=== PATIENT | female | born 1950 | race Caucasian/White ===

== ENCOUNTER 2016-02-27 10:12 | Day surgery (SDC) | payer MEDICARE, BC ==
[2016-02-22 15:46] VITALS: BMI 27.2
[~2016-02-27 10:12] MED LIST: LACTATED RINGERS 1,000 ML IV SCH; LIDOCAINE 1% 20 ML VIAL (10MG/ML) FOR IV START INTRADERMA PRN
[2016-02-27 10:36] VITALS: TEMP 98.8
[2016-02-27] MEDS ORDERED: ONDANSETRON 4 MG/2 ML VIAL IVP PRN (10:38)
[2016-02-27] MEDS ORDERED: LIDOCAINE 1% INJ 10MG/ML (20 ML MDV) ONE (10:51)
[2016-02-27] MEDS ORDERED: PROPOFOL 10 MG/ML 20 ML VIAL IV ONE (10:51)
--- NOTE | 2016-02-27 11:00 | P.PCN ---
Date of Procedure: 02/27/16 Procedure(s) Performed: BRIEF HISTORY: Patient is a 65-year-old, pleasant, white female, scheduled for an upper endoscopy as a part of evaluation of long-standing symptoms of gastroesophageal reflux disease. Lately she has intermittent chest pain, excessive belching and severe heartburn and has been on Nexium 20 mg twice daily despite which remains symptomatic area she is hence scheduled for an upper endoscopy to rule out complicated reflux. PROCEDURE PERFORMED: Esophagogastroduodenoscopy with biopsy. PREOPERATIVE DIAGNOSIS: Long-standing history of GERD with refractory symptoms. IV sedation per anesthesia. PROCEDURE: After informed consent was obtained, the patient was brought into the endoscopy unit. IV conscious sedation was administered by Anesthesia under continuous monitoring. Initially the Olympus GIF-140 video endoscope was inserted into the mouth. Esophagus intubated without any difficulty. It was gradually advanced into the stomach and duodenum and carefully examined. The bulb and the second part of the duodenum appeared normal. The scope at this time was withdrawn to the stomach, adequately insufflated with air, and upon careful examination, mucosa of the antrum, had mild gastritis and biopsies were done from this area. The body, cardia and the fundus appeared normal. The scope was then withdrawn into the esophagus. The GE junction was located at 39 cm from the incisors. The esophagus appeared normal. There were no erosions or ulcerations seen and the patient tolerated the procedure well. IMPRESSION: 1. Mild antral gastritis. 2. No evidence of esophagitis or Ruelas's esophagus. RECOMMENDATIONS: The findings of this examination were discussed with the patient as well as her family. She was advised to follow with the biopsy results. She was advised to continue with Nexium 20 mg twice daily and follow antireflux measures.
[2016-02-27 11:25] VITALS: BP 108/47; PULSE 63; RESP 18
== END 2016-02-27 11:45 | disposition home or self-care (01) ==
LOC: ORWHC2ENDO 10:12
PROVIDERS: ATTEND Internal Medicine Gastroenterology
DX: K21.9 Gastro-esophageal reflux disease without esophagitis (principal); K29.50 Unspecified chronic gastritis without bleeding; I10 Essential (primary) hypertension; E78.5 Hyperlipidemia, unspecified; L71.9 Rosacea, unspecified; Z79.899 Other long term (current) drug therapy; Z88.1 Allergy status to other antibiotic agents; Z88.0 Allergy status to penicillin
CPT/HCPCS: 88305; 88342; 43239; J2405; J2001; J2704

== ENCOUNTER → 2016-06-09 | Outpatient (CLI) | payer MEDICARE, BC ==
--- NOTE | 2016-06-11 07:53 | MM ---
Reason for exam: screening (asymptomatic). Last mammogram was performed 1 year ago. History: Patient is postmenopausal. Family history of breast cancer in maternal grandmother at age 56, breast cancer in mother at age 50, and breast cancer in maternal aunt at age 72. Benign excisional biopsy of the left breast, 1995. Took progesterone for 2 years beginning at age 53. Physical Findings: A clinical breast exam by your physician is recommended on an annual basis and results should be correlated with mammographic findings. MG 3D Screening Mammo W/Cad Bilateral CC and MLO view(s) were taken. Prior study comparison: June 08, 2015, bilateral MG 3d screening mammo w/cad. May 31, 2014, bilateral MG screening mammo w CAD. May 16, 2013, bilateral digital screening mammo w/CAD. There are scattered fibroglandular densities. No significant changes when compared with prior studies. ASSESSMENT: Negative, BI-RAD 1 RECOMMENDATION: Routine screening mammogram of both breasts in 1 year.
== END | disposition home or self-care (01) ==
LOC: RADMAMWWP 08:46
PROVIDERS: ATTEND Obstetrics & Gynecology
DX: Z12.31 Encounter for screening mammogram for malignant neoplasm of breast (principal); Z80.3 Family history of malignant neoplasm of breast
CPT/HCPCS: 77063; G0202

== ENCOUNTER → 2017-06-22 | Outpatient (CLI) | payer MEDICARE, BC ==
--- NOTE | 2017-06-23 11:39 | MM ---
Reason for exam: screening (asymptomatic). Last mammogram was performed 1 year ago. History: Patient is postmenopausal. Family history of breast cancer in maternal grandmother at age 56, breast cancer in mother at age 50, and breast cancer in maternal aunt at age 72. Benign excisional biopsy of the left breast, 1995. Took progesterone for 2 years beginning at age 53. Physical Findings: A clinical breast exam by your physician is recommended on an annual basis and results should be correlated with mammographic findings. MG 3D Screening Mammo W/Cad Bilateral CC and MLO view(s) were taken. Prior study comparison: June 09, 2016, bilateral MG 3d screening mammo w/cad. June 08, 2015, bilateral MG 3d screening mammo w/cad. There are scattered fibroglandular densities. No significant changes when compared with prior studies. ASSESSMENT: Negative, BI-RAD 1 RECOMMENDATION: Routine screening mammogram of both breasts in 1 year.
== END | disposition home or self-care (01) ==
LOC: RADMAMWWP 08:49
PROVIDERS: ATTEND Obstetrics & Gynecology
DX: Z12.31 Encounter for screening mammogram for malignant neoplasm of breast (principal)
CPT/HCPCS: 77063; 77067

== ENCOUNTER → 2018-06-25 | Outpatient (CLI) | payer MEDICARE ==
--- NOTE | 2018-06-29 13:42 | MM ---
Reason for exam: screening (asymptomatic). Last mammogram was performed 1 year ago. History: Patient is postmenopausal. Family history of breast cancer in maternal grandmother at age 56, breast cancer in mother at age 50, and breast cancer in maternal aunt at age 72. Benign excisional biopsy of the left breast, 1995. Took progesterone for 2 years beginning at age 53. Physical Findings: A clinical breast exam by your physician is recommended on an annual basis and results should be correlated with mammographic findings. MG 3D Screening Mammo W/Cad Bilateral CC and MLO view(s) were taken. Prior study comparison: June 22, 2017, bilateral MG 3d screening mammo w/cad. June 09, 2016, bilateral MG 3d screening mammo w/cad. The breast tissue is heterogeneously dense. This may lower the sensitivity of mammography. No significant changes when compared with prior studies. ASSESSMENT: Benign, BI-RAD 2 RECOMMENDATION: Routine screening mammogram of both breasts in 1 year.
== END | disposition home or self-care (01) ==
LOC: RADMAMWWP 09:00
PROVIDERS: ATTEND Obstetrics & Gynecology
DX: Z12.31 Encounter for screening mammogram for malignant neoplasm of breast (principal); Z80.3 Family history of malignant neoplasm of breast
CPT/HCPCS: 77063; 77067

== ENCOUNTER 2018-11-29 06:47 | Day surgery (SDC) | payer MEDICARE ==
[2018-11-24 15:49] VITALS: BMI 24.2
[~2018-11-29 06:47] MED LIST changes: +HYDROmorphone 0.5 MG/0.5 ML SYRINGE IVP PRN; +ONDANSETRON 4 MG/2 ML VIAL IVP ONE; +Pre Op ABX Message 1 EACH MISC MISCELLANE ONE
[2018-11-29 07:11] VITALS: RESP 16; TEMP 97.7
[2018-11-29] MEDS ORDERED: MIDAZOLAM 2 MG/2 ML VIAL IVP ONE (07:26)
[2018-11-29] MEDS ORDERED: fentaNYL (PF) 50 MCG/ML 2 ML AMP IVP ONE (07:26)
[2018-11-29] MEDS ORDERED: fentaNYL (PF) 50 MCG/ML 2 ML AMP ONE (09:05)
[2018-11-29] MEDS ORDERED: MIDAZOLAM 2 MG/2 ML VIAL ONE (09:05)
[2018-11-29] MEDS ORDERED: ROPIVACAINE 5 MG/ML 30 ML VIAL ONE (09:05)
[2018-11-29] MEDS ORDERED: PROPOFOL 10 MG/ML 20 ML VIAL IV ONE (09:05)
[2018-11-29] MEDS ORDERED: BUPIVACAINE (PF) 0.5% 30 ML VIAL SQ ONE (09:14)
[2018-11-29] MEDS ORDERED: LIDOCAINE 2% INJ 20 MG/ML SQ ONE (09:14)
[2018-11-29] MEDS ORDERED: SODIUM CHLORIDE 0.9% 50 ML with ceFAZolin 1,000 MG IV ONE ×2 (09:24)
[2018-11-29 10:35] VITALS: PULSE 67
[2018-11-29 10:38] VITALS: BP 115/66
--- NOTE | 2018-11-29 10:59 | P.ANPRN ---
Procedure Note - Anesthesia - Nerve Block Performed Left Axillary Single Date of Procedure: 11/29/18 Procedure Start Time: 07:24 Procedure Stop Time: 07:35 Location of Patient Procedure: PreOp Indication: Acute Post-Operative Pain, Requested by Surgeon Specifically requested for management of pain by DrKel: John Pruitt Sedation Type: Sedate with meaningful contact maintained Preparation: Sterile Prep Position: Supine Catheter: None Needle Types: Pajunk Needle Gauge: 21 Ultrasound used to visualize needle placement: Yes Ultrasound used to observe medication spread: Yes Injectate: 0.5% Ropivacaine (see comment for volume) (20 cc) Blood Aspirated: No Pain Paresthesia on Injection Noted: No Resistance on Injection: Normal Image Stored and Saved: Yes Events: Uneventful and Well Tolerated
--- NOTE | 2018-11-30 08:36 | OP ---
OPERATIVE REPORT PROCEDURE: SURGERY DATE 11/29/2018 PREOPERATIVE DIAGNOSIS: 1. Basilar joint arthritis, left thumb. 2. Left carpal tunnel syndrome. FINAL DIAGNOSES: 1. Basilar joint arthritis, left thumb. 2. Left carpal tunnel syndrome. PROCEDURES: 1. Excision of trapezium with ligament reconstruction, tendon interposition arthroplasty using the flexor carpi radialis tendon. 2. Left carpal tunnel release. SILK WEAVER: Helen Muller NP PROCEDURE: The patient was taken to the Operative Suite after an axillary block was performed by the Department of Anesthesia in the holding area with good results. The involved arm was prepped and draped in the usual manner, elevated, exsanguinated and blood pressure tourniquet inflated to 250 mm of mercury. A volar incision was made over the palm of the hand using a Dawson approach. The dissection was taken through the subcutaneous tissue bluntly to identify and to preserve sensory branches. The flexor carpi radialis tendon was initially identified and kept in view throughout the remainder of the procedure. The thenar muscles were then gently dissected off of the volar capsule and reflected ulnarly and distally. Longitudinal arthrotomy was then made into the trapezial metacarpal and scaphotrapezial joints. The trapezium was dissected sharply with a little traction on the thumb and care again, given to monitoring the position of the flexor carpi radialis. The trapezium was osteotomized and removed in piecemeal fashion using rongeur. Again, the flexor carpi radialis tendon was kept intact so as not to be harmed during this portion of the procedure. A drill hole was then made into the base of the first metacarpal, beginning with an awl and enlarged using drill bits and a large curette. A similar hole was drilled on the dorsal aspect of the base of the first metacarpal perpendicular to the plane of the nail bed. Attention was then turned to harvesting the flexor carpi radialis. Approximately 8 to 10 cm proximal to the wrist, small transverse incision was made and blunt dissection was taken through the subcutaneous tissue. The flexor carpi radialis tendon was identified and released to this level. It was retracted into the wrist wound with a gentle tug. A suspension sling arthroplasty was then performed along with ligament reconstruction of the deep volar ligament using the flexor carpi radialis tendon. The edge of the tendon was secured with suture. The suture was then passed into the base of the first metacarpal and brought out through the dorsal drill hole and brought back down upon itself and abductor pollicis longus tendons. It was secured in place with 3-0 PDS suture. It was then brought back around itself, back through the abductor pollicis longus tendons, and back down upon itself again and further secured with 3-0 PDS suture. Again, in this manner reconstruction of the deep volar ligament was accomplished as well as a suspension sling arthroplasty and natural tendon spacer for the joint. Next, a longitudinal incision was made along the ring finger ray distal to the wrist crease. Dissection was taken through the skin and subcutaneous tissue, initially sharp through the skin and then blunt through the subcutaneous tissue to ensure protection of any potential terminal transverse branches of the palmar cutaneous nerve. The palmar fascia was then incised under direct vision longitudinally exposing the transverse carpal ligament. The transverse carpal ligament also was incised under direct visualization. The median nerve was then reflected free of tenosynovium to ensure no adhesions. At this point, a slight hour glass constriction was noted of the median nerve beneath the transverse carpal ligament. Both wounds were again irrigated and were closed with running and interrupted 5- 0 nylon suture. A soft bulky dressing was then applied including the volar plaster splint, immobilizing the wrist in neutral position and a thumb spica splint to the IP joint, immobilizing the thumb. The patient was then taken to the Recovery Room in satisfactory condition. MIGUEL ÁNGEL / MARILYN: [id number] / [email or web address]
== END 2018-11-29 11:15 | disposition home or self-care (01) ==
LOC: OR 06:47
PROVIDERS: ATTEND Orthopaedic Surgery Hand Surgery
DX: M18.12 Unilateral primary osteoarthritis of first carpometacarpal joint, left hand (principal); G56.02 Carpal tunnel syndrome, left upper limb; I10 Essential (primary) hypertension; E78.5 Hyperlipidemia, unspecified; L71.9 Rosacea, unspecified; E03.9 Hypothyroidism, unspecified; E05.00 Thyrotoxicosis with diffuse goiter without thyrotoxic crisis or storm; K21.9 Gastro-esophageal reflux disease without esophagitis; I73.00 Raynaud's syndrome without gangrene; Z79.1 Long term (current) use of non-steroidal anti-inflammatories (NSAID); Z79.899 Other long term (current) drug therapy; Z88.1 Allergy status to other antibiotic agents; Z88.0 Allergy status to penicillin; Z98.890 Other specified postprocedural states; Z86.79 Personal history of other diseases of the circulatory system; Z83.3 Family history of diabetes mellitus; Z82.49 Family history of ischemic heart disease and other diseases of the circulatory system
CPT/HCPCS: 64721; 25447; 25310; 64415; J2250; J2405; J0690; J3010; J2795; J2704; 64445; 76942

== ENCOUNTER → 2019-09-16 | Outpatient (CLI) | payer MEDICARE ==
--- NOTE | 2019-09-19 14:14 | MM ---
Reason for exam: screening (asymptomatic). Last mammogram was performed 1 year and 3 months ago. History: Patient is postmenopausal. Family history of breast cancer in maternal grandmother at age 56, breast cancer in mother at age 50, and breast cancer in maternal aunt at age 72. Benign excisional biopsy of the left breast, 1995. Took progesterone for 2 years beginning at age 53. Physical Findings: A clinical breast exam by your physician is recommended on an annual basis and results should be correlated with mammographic findings. MG 3D Screening Mammo W/Cad Bilateral CC and MLO view(s) were taken. Prior study comparison: June 25, 2018, bilateral MG 3d screening mammo w/cad. June 22, 2017, bilateral MG 3d screening mammo w/cad. The breast tissue is heterogeneously dense. This may lower the sensitivity of mammography. There is no discrete abnormality. ASSESSMENT: Benign, BI-RAD 2 RECOMMENDATION: Routine screening mammogram of both breasts in 1 year.
== END | disposition home or self-care (01) ==
LOC: RADMAMWWP 13:32
PROVIDERS: ATTEND Obstetrics & Gynecology
DX: Z12.31 Encounter for screening mammogram for malignant neoplasm of breast (principal); Z80.3 Family history of malignant neoplasm of breast
CPT/HCPCS: 77063; 77067

== ENCOUNTER → 2019-09-20 | Outpatient (CLI) | payer MEDICARE ==
--- NOTE | 2019-09-20 14:30 | BD ---
EXAMINATION TYPE: Axial Bone Density DATE OF EXAM: 09/20/2019 COMPARISON: NONE CLINICAL HISTORY: Postmenopausal female Height: 4 FT 10 1/2 IN Weight: 119 FRAX RISK QUESTIONS: Alcohol (3 or more units per day): NO Family History (Parent hip fracture): YES Glucocorticoids (More than 3mos): NO (Ex: prednisone, prednisolone, methylprednisolone, dexamethasone, and hydrocortisone). History of Fracture in Adulthood: YES Secondary Osteoporosis: 1. Type 1 Diabetes: NO 2. Hyperthyroidism: YES 3. Menopause before 45: NO 4. Malnutrition: NO 5. Chronic liver disease: NO Rheumatoid Arthritis: NO Current Tobacco Use: NO RISK FACTORS HISTORY OF: Family History of Osteoporosis: YES Active: YES Postmenopausal woman: AGE 57 MEDICATIONS: How Long: Additional Medications: AMLODIPINE, METOPROLOL, ATORVASTATIN, NEXIUM, CALCIUM Additional History: CARPAL TUNNEL EXAM MEASUREMENTS: Bone mineral densitometry was performed using the Teak System. Bone mineral density as measured about the Lumbar spine is: ----- L1-L4(G/cm2): 1.388 T Score Values are as follows: ----- L2: -0.4 ----- L3: 1.9 ----- L4: 4.0 ----- L1-L4: 1.7 Bone mineral density has: DECREASED -2.3 % since study of: 2014 Bone mineral density about the R hip (g/cm2): 0.993 Bone mineral density about the L hip (g/cm2): 0.998 T Score values are as follows: -----R Neck: -0.3 -----L Neck: -0.3 -----R Total: 1.1 -----L Total: 1.2 Bone mineral density has: DECREASED -4.7 % since study of: 2014 IMPRESSION: Normal (Values between +1 and -1 indicate normal bone mass). Consider repeating this study in 5 year s or sooner if there is some new clinical indication. NOTE: T-SCORE=SD OF THE YOUNG ADULT MEAN.
== END | disposition home or self-care (01) ==
LOC: RADBDWWP 10:43
PROVIDERS: ATTEND Obstetrics & Gynecology
DX: N95.1 Menopausal and female climacteric states (principal)
CPT/HCPCS: 77080

== ENCOUNTER → 2020-10-04 | Outpatient (CLI) | payer MEDICARE ==
--- NOTE | 2020-10-08 12:23 | MM ---
Reason for exam: screening (asymptomatic). Last mammogram was performed 1 year and 1 month ago. History: Patient is postmenopausal. Family history of breast cancer in maternal grandmother at age 56, breast cancer in mother at age 50, and breast cancer in maternal aunt at age 72. Benign excisional biopsy of the left breast, 1995. Took progesterone for 2 years beginning at age 53. Physical Findings: A clinical breast exam by your physician is recommended on an annual basis and results should be correlated with mammographic findings. MG 3D Screening Mammo W/Cad Bilateral CC and MLO view(s) were taken. Prior study comparison: September 16, 2019, bilateral MG 3d screening mammo w/cad. June 25, 2018, bilateral MG 3d screening mammo w/cad. June 22, 2017, bilateral MG 3d screening mammo w/cad. There are scattered fibroglandular densities. No significant changes when compared with prior studies. ASSESSMENT: Benign, BI-RAD 2 RECOMMENDATION: Routine screening mammogram of both breasts in 1 year.
== END | disposition home or self-care (01) ==
LOC: RADMAMWWP 13:39
PROVIDERS: ATTEND Obstetrics & Gynecology
DX: Z12.31 Encounter for screening mammogram for malignant neoplasm of breast (principal); Z80.3 Family history of malignant neoplasm of breast; Z85.3 Personal history of malignant neoplasm of breast
CPT/HCPCS: 77063; 77067

== ENCOUNTER → 2021-10-07 | Outpatient (CLI) | payer MEDICARE ==
--- NOTE | 2021-10-07 10:17 | MM ---
Reason for Exam: Screening (asymptomatic). Last screening mammogram was performed 12 month(s) ago. Patient History: Menarche at age 11. First Full-Term at age 27. Postmenopausal. Progesterone for 2 years from age 53 until age 55. 1995, Benign Excisional Biopsy on the left side. Maternal grandmother had breast cancer, age 56. Maternal aunt had breast cancer, age 72. Mother had breast cancer, age 50. Risk Values: Lizzy 5 year model risk: 4.0%. NCI Lifetime model risk: 10.9%. Prior Study Comparison: 06/25/2018 Bilateral Screening Mammogram, [facility]. 09/16/2019 Bilateral Screening Mammogram, [facility]. 10/04/2020 Bilateral Screening Mammogram, [facility]. Tissue Density: There are scattered fibroglandular densities. Findings: Analyzed By CAD. There is no suspicious group of microcalcifications or new suspicious mass in either breast. Overall Assessment: Negative, BI-RAD 1 Management: Screening Mammogram of both breasts in 1 year. A clinical breast exam by your physician is recommended on an annual basis and results should be correlated with mammographic findings. Electronically signed and approved by: Eric Almonte DO
== END | disposition home or self-care (01) ==
LOC: RADMAMWWP 09:33
PROVIDERS: ATTEND Obstetrics & Gynecology
DX: Z12.31 Encounter for screening mammogram for malignant neoplasm of breast (principal); Z78.0 Asymptomatic menopausal state; Z80.3 Family history of malignant neoplasm of breast
CPT/HCPCS: 77063; 77067

== ENCOUNTER → 2023-11-10 | Outpatient (CLI) | payer MEDICARE ==
[2023-11-10 10:20] VITALS: BP 132/68; PULSE 59; RESP 16; TEMP 98.3
--- NOTE | 2023-11-10 11:38 | P.HPOB ---
History of Present Illness H&P Date: 11/10/23 Chief Complaint: The patient is here for her routine gynecologic exam and ma mmogram. This is a 73-year-old G2, P2 with an LMP of 2007. The patient is here to establish with this office. She previously saw Dr. Mitchell for her gynecologic care and her last pelvic exam was about 1 year ago. She is without gynecologic complaints and denies any postmenopausal bleeding. Patient had an MRI of the lumbar spine on 11/05/2023 which did show an incidental 1.7 cm uterine fibroid. Review of Systems The patient's weight has been stable over the last year. She denies respiratory, cardiac, or G.I. problems. Past Medical History Past Medical History: GERD/Reflux, Hyperlipidemia, Hypertension, Osteoarthritis (OA), Skin Disorder, Supraventricular Tachycardia (SVT), Thyroid Disorder Additional Past Medical History / Comment(s): rosacea, rhinitis. Graves disease with hyperthyroidism last episode 2013, Raynauds ds. SVT's on occasion. PAST PROFESSOR OF SOCIOLOGY HISTORY: She has no history of STDs. History of Any Multi-Drug Resistant Organisms: None Reported Past Surgical History: Orthopedic Surgery Additional Past Surgical History / Comment(s): D & C 'S bilat great toe surgery. Colonoscopy with EGD 2023(next after 10yr). LAPOROSCOPY. CTR-RT WRIST, BASAL JOINt left and right hand. RT WRIST SX. BILAT GREAT TOE SX Past Anesthesia/Blood Transfusion Reactions: Motion Sickness, Postoperative Nausea & Vomiting (PONV) Additional Past Anesthesia/Blood Transfusion Reaction / Comment(s): no blood transfusion reaction Past Psychological History: No Psychological Hx Reported Smoking Status: Never smoker Past Alcohol Use History: Daily (1 glass of wine per day.) Additional Past Alcohol Use History / Comment(s): 1 GLASS OF WINE DAILY Past Drug Use History: None Reported Additional History: She has been a since 2006. She has not been sexually active for several years. She is a retired RN. - Past Family History Father Family Medical History: Cancer Additional Family Medical History / Comment(s): LUNG cancer and . Mother Family Medical History: Cancer, CVA/TIA, Hypertension, Myocardial Infarction (MA) Additional Family Medical History / Comment(s): BREAST CA. Hx phlebitis. . Maternal aunt had breast cancer. Brother(s) Family Medical History: CVA/TIA, Hypertension Daughter(s) Family Medical History: Cancer Additional Family Medical History / Comment(s): Breast cancer. She apparently tested negative for genetic cancer mutations. Medications and Allergies Home Medications Medication Instructions Recorded Confirmed Type Atorvastatin [Lipitor] 10 mg PO HS 02/06/16 11/10/23 History Calcium Carbonate/Vitamin D3 1 each PO DAILY 02/06/16 11/10/23 History [Calcium 600-Vit D3 200 Tablet] Desloratadine [Clarinex] 5 mg PO DAILY 02/06/16 11/10/23 History Desonide [Desowen] 1 dose TOPICAL DAILY 02/06/16 11/10/23 History Esomeprazole Magnesium [NexIUM] 20 mg PO BID 02/06/16 11/10/23 History Klaron Cream 1 dose TOPICAL DAILY 02/06/16 11/10/23 History Metoprolol Tartrate [Lopressor] 12.5 mg PO BID 02/06/16 11/10/23 History Triamcinolone Acetonide 1 spray EA NOSTRIL HS 02/06/16 11/10/23 History [Triamcinolone Acetonide 0.055MG] amLODIPine [Norvasc] 5 mg PO BID 02/06/16 11/10/23 History Ibuprofen [Motrin] 400 mg PO Q6HR PRN 11/24/18 11/10/23 History Multivitamins, Thera [Multivitamin 1 tab PO DAILY 11/24/18 11/10/23 History (formulary)] methIMAzole 10 mg PO DAILY 11/10/23 11/10/23 History Allergies Allergy/AdvReac Type Severity Reaction Status Date / Time bacitracin AdvReac Rash/Hives Verified 11/10/23 10:17 [From Neosporin ([id number])] clavulanic acid AdvReac GI upset Verified 11/10/23 10:17 [From Augmentin] neomycin AdvReac Rash/Hives Verified 11/10/23 10:17 [From Neosporin ([id number])] polymyxin B AdvReac Rash/Hives Verified 11/10/23 10:17 [From Neosporin ([id number])] Exam Vital Signs Temp Pulse Resp BP Pulse Ox 11/10/23 10:18 98.3 F 59 L 16 132/68 99 Intake and Output 11/09/23 11/10/23 11/10/23 22:59 06:59 14:59 Other: Weight 56.699 kg Height 4 feet 11 inches, weight 125 pounds, BMI 25. This is a well-developed well-nourished white female who is alert and oriented times 3 in no acute distress. HEENT: Within normal limits. NECK: Supple without mass or thyromegaly. CHEST AND LUNGS: Clear to auscultation. HEART: Regular rate and rhythm. BREASTS: Are without mass or discharge. AXILLARY EXAM: Negative for adenopathy. BACK: Negative for CVA tenderness. ABDOMEN: Soft, nontender, without palpable masses. PELVIC EXAM: Normal external genitalia with mild to moderate atrophy. Cervix and vagina appear normal with mild to moderate atrophy. There is no unusual discharge. There is no evidence of prolapse. The uterus is midposition, nongravid size and nontender. There are no palpable adnexal masses or tenderness. RECTAL EXAM: Rectovaginal exam is negative for mass or tenderness and is negative for occult blood. EXTREMITIES: Nontender. IMPRESSION: 1. 73-year-old menopausal female with normal gynecologic exam. 2. History of small uterine fibroid which is asymptomatic. The fibroid measured 1.7 cm on an MRI done on 11/05/2023. PLAN: 1. Pap smear was performed. If this is negative, we will plan on discontinuing the Pap smears as she states she has had regular screening prior to the age of 64 and has no history of cervical neoplasia. She will try to bring the records from Dr. Mitchell's office that she has. 2. Self breast awareness was discussed with the patient. We have also discussed symptoms associated with inflammatory breast cancer. 3. Screening mammogram will be done today. 4. Osteoporosis prevention was discussed. I have stressed the importance of adequate calcium, vitamin D and regular exercise. Recommended amounts of calcium and vitamin D were also discussed. She had an normal bone density test done on 09/20/2019 and we will plan on repeating this in 1 year. 5. Genetic cancer screening was discussed and offered to the patient. She is declining this at this time. She will let me know if she changes her mind about this. 6. She was advised to return in one year for her annual well woman exam.
--- NOTE | 2023-11-11 12:21 | MM ---
Reason for Exam: Screening (asymptomatic). Last mammogram was performed 1 year(s) and 1 month(s) ago. Patient History: Menarche at age 11. First Full-Term at age 27. Postmenopausal. Progesterone for 2 years from age 53 until age 55. 1995, Benign Excisional Biopsy on the left side. Maternal grandmother had breast cancer, age 56. Maternal aunt had breast cancer, age 72. Mother had breast cancer, age 50. Daughter had breast cancer, age 44. Risk Values: Lizzy 5 year model risk: 7.2%. NCI Lifetime model risk: 15.8%. Prior Study Comparison: 10/04/2020 Bilateral Screening Mammogram, [facility]. 10/07/2021 Bilateral MG 3D screening mammo w/cad, [facility]. 11/04/2022 Bilateral MG 3D screening mammo w/cad, [facility]. Tissue Density: The breasts are heterogeneously dense, which may obscure small masses. Findings: Analyzed By CAD. There is no suspicious group of microcalcifications or new suspicious mass in either breast. Overall Assessment: Benign, BI-RAD 2 Management: Screening Mammogram of both breasts in 1 year. . Patient should continue monthly self-breast exams. A clinical breast exam by your physician is recommended on an annual basis. This exam should not preclude additional follow-up of suspicious palpable abnormalities. Note on Lizzy scores and lifetime risk: 1. A Lizzy score greater than 3% is considered moderate risk. If this is the case, consider specialist referral to assess eligibility for a risk reducing agent. 2. If overall lifetime risk for the development of breast cancer is 20% or higher, the patient may qualify for future screening with alternating mammogram and breast MRI. [facility], , 11/11/2023 12:18 PM. Electronically signed and approved by: Gordo Fontenot M.D. Radiologis
== END ==
LOC: WWCWWP 09:45
PROVIDERS: ATTEND Obstetrics & Gynecology
DX: Z12.31 Encounter for screening mammogram for malignant neoplasm of breast (principal); Z78.0 Asymptomatic menopausal state; Z86.018 Personal history of other benign neoplasm; Z80.3 Family history of malignant neoplasm of breast; Z88.1 Allergy status to other antibiotic agents; Z88.8 Allergy status to other drugs, medicaments and biological substances
CPT/HCPCS: 77063; 77067